=== PATIENT | male | born 1995 | race Caucasian/White ===

== ENCOUNTER 2018-02-14 03:39 | Emergency (ER) | payer OTHER ==
[~2018-02-14] VITALS: Ht 180.3 cm; Wt 74.5 kg
[2018-02-14 04:20] VITALS: Ht 180.3 cm; Wt 74.5 kg
[2018-02-14 06:58] LABS: BASOPHIL % 0.2 % (0-2); PLATELET COUNT 176 x10^3mcL (130-400); RED CELL DISTRIBUTION WIDTH 13.4 % (11.5-14.5)
[2018-02-14 07:01] VITALS: BP 126/72
[2018-02-14 07:06] LABS: CALCIUM 8.6 mg/dL (8.5-10.1); CARBON DIOXIDE 22.8 mmol/L (21-32); CHLORIDE SERUM 106 mmol/L (98-107); CREATININE SERUM 0.9 mg/dL (0.7-1.3); GFR1 > 60 mL/min; GLUCOSE SERUM 103 mg/dL (74-106); POTASSIUM SERUM 3.5 mmol/L (3.5-5.1); SODIUM SERUM 141 mmol/L (136-145)
== END 2018-02-14 08:19 | disposition home or self-care (01) ==
LOC: ED 03:39
PROVIDERS: Emergency Medicine
DX: L03.211 Cellulitis of face (principal); K13.0 Diseases of lips
CPT/HCPCS: J3490; Q9967